=== PATIENT | female | born 1985 | race Caucasian/White ===

== ENCOUNTER 2017-05-01 21:46 | Inpatient (IN) | payer OTHER ==
[~2017-05-01] VITALS: Ht 162.6 cm; Wt 80.7 kg
[2017-05-01 22:39] LABS: RED BLOOD COUNT 4.5 M/UL (4.00-5.10); WHITE BLOOD COUNT 13.9 K/UL (4.5-11.0)
[2017-05-02 06:07] LABS: HEMOGLOBIN 12.8 gm/dl (12.3-15.3)
[2017-05-03] MEDS ORDERED: NORCO 5-325 TA1 EACH PO (11:26)
== END 2017-05-03 11:50 | disposition home or self-care (01) | DRG 775 ==
LOC: GENOP 21:46 → OB 22:10
PROVIDERS: ADMIT Obstetrics & Gynecology
PROC: 10E0XZZ Delivery of Products of Conception, External Approach (ICD-10-PCS; principal; 2017-05-01)
PROC: 0KQM0ZZ Repair Perineum Muscle, Open Approach (ICD-10-PCS; 2017-05-01)
PROC: 3E0234Z Introduction of Serum, Toxoid and Vaccine into Muscle, Percutaneous Approach (ICD-10-PCS; 2017-05-02)
PROC: 3E0234Z Introduction of Serum, Toxoid and Vaccine into Muscle, Percutaneous Approach (ICD-10-PCS; 2017-05-03)
DX: O77.0 Labor and delivery complicated by meconium in amniotic fluid (principal); Z3A.39 39 weeks gestation of pregnancy; Z37.0 Single live birth; O70.1 Second degree perineal laceration during delivery; O69.81X0 Labor and delivery complicated by cord around neck, without compression, not applicable or unspecified; O34.219 Maternal care for unspecified type scar from previous cesarean delivery; N85.8 Other specified noninflammatory disorders of uterus; Z23 Encounter for immunization
CPT/HCPCS: 36415; 81001; 82800; 85014; 85018; 85025; 90715; G0463; J2590; J3010; J3430; J7120; Q0162; Q2039

== ENCOUNTER 2022-03-20 14:35 | Emergency (ER) | payer OTHER ==
[~2022-03-20 14:35] MED LIST: NORCO 5-325 TA1 EACH PO; PRENATAL VITAM1 EAC8 PO
== END 2022-03-20 18:41 | disposition left against medical advice (07) ==
LOC: ER1 14:35
DX: R50.9 Fever, unspecified (principal); R52 Pain, unspecified; Z20.822 Contact with and (suspected) exposure to COVID-19
CPT/HCPCS: 0240U; 99281